=== PATIENT | female | born 1950 | race Caucasian/White ===

== ENCOUNTER 2017-08-23 12:46 | Emergency (ER) | payer OTHER, MEDICAID ==
[~2017-08-23] VITALS: Ht 165.1 cm; Wt 66.7 kg
[2017-08-23 12:50] VITALS: BP_SYST 133
== END 2017-08-23 15:00 | disposition home or self-care (01) ==
LOC: SED 12:46
DX: S83.8X1A Sprain of other specified parts of right knee, initial encounter (principal); W18.39XA Other fall on same level, initial encounter; Y93.89 Activity, other specified; Y92.89 Other specified places as the place of occurrence of the external cause; Y99.8 Other external cause status
CPT/HCPCS: 73564; 99284

== ENCOUNTER 2017-12-16 12:10 | Emergency (ER) | payer OTHER, MEDICAID ==
[~2017-12-16] VITALS: Ht 165.1 cm; Wt 68.0 kg
[2017-12-16 12:23] VITALS: BP_SYST 156
[2017-12-16 12:41] LABS: BILIRUBIN,URINE NEGATIVE (NEGATIVE); BLOOD, URINE NEGATIVE (NEGATIVE); CLARITY/URINE CLEAR (CLEAR); COLOR,URINE YELLOW (YELLOW); GLUCOSE,URINE NEGATIVE (NEGATIVE); KETONES,URINE NEGATIVE (NEGATIVE); LEUKOCYTE ESTERASE ,URINE NEGATIVE (NEGATIVE); NITRITE, URINE NEGATIVE (NEGATIVE); PROTEIN URINE NEGATIVE (NEGATIVE); UROBILINOGEN,URINE 0.2 (0.2-1.0)
[2017-12-16 13:18] LABS: CREATININE 0.81 mg/dL (0.55-1.30); POTASSIUM 3.8 mmol/L (3.5-5.1)
[2017-12-16 13:20] LABS: BASOPHILS % (AUTO) 0.6 % (0.0-2.0); EOSINOPHILS # (AUTO) 0.3 K/uL (0.0-0.4); EOSINOPHILS % (AUTO) 3.9 % (0.0-4.0); HEMOGLOBIN 14.7 g/dL (12.0-16.0); LYMPHOCYTES # (AUTO) 2.2 K/uL (1.0-5.5); MEAN CORPUSCULAR HEMOGLOBIN 33 pg (27-31); MEAN CORPUSCULAR HGB CONC 34 % (32-36); MEAN CORPUSCULAR VOLUME 96 fL (79.0-98.0); MONOCYTES # (AUTO) 0.6 K/uL (0.0-1.0); MONOCYTES % (AUTO) 9.4 % (1.7-9.3); NEUTROPHILS # (AUTO) 3.5 K/uL (1.8-7.7); NEUTROPHILS % (AUTO) 53.1 % (40.0-70.0); PLATELET COUNT (AUTO) 185 K/uL (130-430); RED BLOOD CELL COUNT(AUTO) 4.49 MIL/uL (4.2-6.2); RED CELL DISTRIBUTION WIDTH 12.1 % (9.0-15.0); WHITE BLOOD COUNT (AUTO) 6.6 K/uL (4.8-10.8)
[2017-12-16 13:21] LABS: ALBUMIN 3.8 g/dL (3.4-4.8); TOTAL BILIRUBIN 0.4 mg/dL (0.0-1.0)
[2017-12-16 14:59] VITALS: BP_SYST 127
== END 2017-12-16 14:59 | disposition home or self-care (01) ==
LOC: SED 12:10
DX: R10.32 Left lower quadrant pain (principal); M54.5 Low back pain; Z98.890 Other specified postprocedural states
CPT/HCPCS: 36415; 80053; 81003; 83690-TC; 85025; 99285

== ENCOUNTER 2023-07-25 12:48 | Emergency (ER) | payer BC, MEDICAID, OTHER ==
[~2023-07-25] VITALS: Ht 162.6 cm; Wt 66.7 kg
[2023-07-25 12:50] VITALS: BP_SYST 140; PULSE 94; RESP 17; TEMP 97.8; O2SAT 98
[2023-07-25] MEDS ORDERED: DOCU-144 PO (13:14)
== END 2023-07-25 13:22 | disposition home or self-care (01) ==
LOC: SED 12:48
DX: K59.00 Constipation, unspecified (principal); R10.9 Unspecified abdominal pain; Z79.899 Other long term (current) drug therapy
CPT/HCPCS: 99282